=== PATIENT | male | born 1945 | race Caucasian/White ===

== ENCOUNTER 2017-01-10 14:13 | Inpatient (IN) | payer MEDICARE, BC ==
[~2017-01-10] VITALS: Ht 171.4 cm; Wt 70.8 kg
[~2017-01-10 14:13] MED LIST: ARICEPT10 MG PO; CARBATROL200 MG PO; COUMADIN 1MG1 MG/TAB PO; COUMADIN 2MG2 MG/TAB PO; COUMADIN 5MG5 MG/TAB; COZAAR 25MG25 MG/TAB PO; COZAAR 50MG50 MG/TAB PO; FOLIC ACID0.4 MG PO; JANTOVEN2 MG PO; LASIX 20MG TABL20 MG PO; LEVAQUIN 5500 MG/TA1 PO; NATURAL IRON65 MG PO; NORCO 325 MG-7.1 TAB PO; PLAQUENIL 200M200 MG PO; ROXICODONE 55 MG/TAB PO; SODIUM BICARBO650 MG PO; SYNTHROID 0.10.15 MG PO; TYLENOL 500MG500 MG PO; VITAMIN C500 MG PO; XARELTO10 MG PO; ZESTRIL 10MG10 MG PO
[2017-03-28] VITALS (9 sets, daily range): BP systolic 115–140; BP diastolic 53–77; PULSE 63–77; TEMP 97.2–98.9
[2017-03-28 08:25] LABS: PROTHROMBIN TIME 11.7 SECONDS (9.7-12.8)
[2017-03-28] MEDS ORDERED: XARELTO10 MG PO (08:30)
[2017-03-28] MEDS ORDERED: VELTASSA8.4 GM PO (08:32)
[2017-03-29 00:21] VITALS: BP 96/51; PULSE 72; TEMP 98.6
[2017-03-29 03:25] VITALS: BP 105/57; PULSE 75; TEMP 98.6
[2017-03-29 06:54] LABS: INR 1.1 (0.8-3.0); PROTHROMBIN TIME 12.6 SECONDS (9.7-12.8)
[2017-03-29 07:55] VITALS: BP 135/67; PULSE 87; TEMP 98.2
[2017-03-29] MEDS ORDERED: NORCO 325 MG-7.1 TAB PO (09:26)
[2017-03-29] MEDS ORDERED: ROXICODONE 55 MG/TAB PO (09:28)
[2017-03-29] MEDS ORDERED: XARELTO10 MG PO (09:32)
[2017-03-29] MEDS ORDERED: COUMADIN 5MG5 MG/TAB PO (09:37)
== END 2017-03-29 11:56 | disposition home or self-care (01) | DRG 483 ==
LOC: JCC 03-28 07:30 → SURG 03-28 07:51 → JCC 03-28 14:30 → SURG 03-29 11:56
PROVIDERS: Orthopaedic Surgery
PROC: 0RRK00Z Replacement of Left Shoulder Joint with Reverse Ball and Socket Synthetic Substitute, Open Approach (ICD-10-PCS; principal; 2017-03-28 14:30)
DX: M19.212 Secondary osteoarthritis, left shoulder (principal); E03.9 Hypothyroidism, unspecified; Z86.718 Personal history of other venous thrombosis and embolism; Z79.01 Long term (current) use of anticoagulants; Z86.711 Personal history of pulmonary embolism
CPT/HCPCS: A4314; A9284; C1713; C1776; J0360; J0690; J1100; J2370; J2405; J2704; J3010; J7030; J7050

== ENCOUNTER → 2017-03-19 | Outpatient (CLI) | payer MEDICARE, BC ==
[~2017-03-19] MED LIST changes: -COUMADIN 5MG5 MG/TAB; +COUMADIN 5MG5 MG/TAB PO; +IRON325 M2 PO; -NATURAL IRON65 MG PO
[2017-03-19 16:30] LABS: HIV 1/2 Antibodies Non-Reactive; HIV-1p24 Antigen Non-Reactive
== END ==
LOC: COL.LAB 15:30
PROVIDERS: Orthopaedic Surgery
DX: Z01.812 Encounter for preprocedural laboratory examination (principal); M19.012 Primary osteoarthritis, left shoulder

== ENCOUNTER 2019-04-03 07:41 | Day surgery (SDC) | payer MEDICARE, BC ==
[2019-04-03] VITALS (8 sets, daily range): BP systolic 150–182; BP diastolic 67–80; PULSE 51–61; TEMP 97.9
[~2019-04-03] VITALS: Ht 172.8 cm; Wt 79.0 kg
[~2019-04-03 07:41] MED LIST changes: +COUMADIN 5MG5 MG/TAB; -IRON325 M2 PO; +NATURAL IRON65 MG PO; +VELTASSA8.4 GM PO
[2019-04-03 08:40] LABS: HEMOGLOBIN 10.9 g/dl (13.5-18.0); MEAN CELL VOLUME 90 fl (80.0-100.0); MEAN CORPUSCULAR HEMOGLOBIN 29 pg (27.0-31.0); MEAN CORPUSCULAR HGB CONC 33 g/dl (33.0-37.0); MEAN PLATELET VOLUME 11.2 fl (7.4-10.4); PLATELET COUNT 167 K/mm3 (130-400); RED BLOOD COUNT 3.71 M/mm3 (4.20-5.60); REDCELL DISTRIBUTION WIDTH-CV 13.4 % (11.5-14.5)
[2019-04-03 08:42] LABS: HEMATOCRIT 33.3 % (42.0-52.0)
[2019-04-03] MEDS ORDERED: TOPROL XL100 MG PO (08:44)
[2019-04-03] MEDS ORDERED: NORVASC 5MG5 MG/TAB PO (08:46)
[2019-04-03] MEDS ORDERED: SYNTHROID0.2 MG/TAB PO (08:46)
[2019-04-03 08:47] LABS: CALCIUM 8.2 mg/dL (8.4-10.2); CREATININE, serum 2.69 (0.66-1.25); POTASSIUM 5.3 mmol/L (3.4-5.0)
[2019-04-03] MEDS ORDERED: CARBATROL200 MG PO (08:48)
[2019-04-03] MEDS ORDERED: CALCIUM 600MG+D1 TAB PO (08:48)
[2019-04-03] MEDS ORDERED: PLAVIX 75MG TAB75 MG PO (08:49)
[2019-04-03] MEDS ORDERED: COUMADIN 1MG1 MG/TAB PO (08:50)
[2019-04-03 09:01] LABS: INR 1.2 (0.8-3.0); PROTHROMBIN TIME 13.6 SECONDS (9.7-12.8)
[2019-04-03 09:04] LABS: PARTIAL THROMBOPLASTIN TIME 32.6 SECONDS (26.0-37.0)
--- NOTE | 2019-04-03 09:50 | NUR ---
DR DICKINSON INTO SEE PT, LAB WORK OF POTASSIUM 5.3, GFR OF 23 GIVEN TO MUCOMYST GIVEN ORDERED ON SHEET, 500CC/HR BOLUS STARTED THEN TO GO TO 250CC/HR.
--- NOTE | 2019-04-03 10:29 | NUR ---
SEE MERGE FOR MEDICATION ADMINISTRATION TIMES AND INTRA AND POST SEDATION ASSESSMENTS.
--- NOTE | 2019-04-03 11:15 | NUR ---
pt returned from blood bank laboratory professional via bed to eu 12, family with pt. Pt is awake and alert, no c/o. has radial band on 12cc. call light in reach
--- NOTE | 2019-04-03 11:16 | NUR ---
BEDSIDE HAND OFF REPORT TO ES LOZANO. PT IS ALERT AND ORIENTED. HEMOSTASIS NOTED WITH TR BAND IN PLACE ON R WRIST WITH 12CC OF AIR IN THE BAND. FAMILY AT BEDSIDE. PT HAS NO QUESTIONS OR CONCERNS AT THIS TIME.
--- NOTE | 2019-04-03 11:45 | NUR ---
pt voided 300cc yellow urine, sips on coffee, no c/o
--- NOTE | 2019-04-03 12:30 | NUR ---
visits with family, declined meal at this time. no c/o, voided 200cc yellow urine
--- NOTE | 2019-04-03 13:00 | NUR ---
radial band released slowly, 1-2 cc every 5 min. No bleeding or swelling, dressing applied at 1310. pt up and walking. Reviewed discharge inst. with pt and family on care of stie, activity, followup and medications for home, with verbal understanding. [facility] office will call them on followup, but will return on saturday for INR test.
--- NOTE | 2019-04-03 13:35 | NUR ---
int d'cd intact, pt up to b/r to void, dressed. Discharged via w/c to car with family
== END 2019-04-03 13:45 | disposition home or self-care (01) ==
LOC: COL.CAR 07:41
PROVIDERS: Internal Medicine Interventional Cardiology
DX: I25.10 Atherosclerotic heart disease of native coronary artery without angina pectoris (principal); I35.1 Nonrheumatic aortic (valve) insufficiency; I11.0 Hypertensive heart disease with heart failure; I50.22 Chronic systolic (congestive) heart failure; I87.1 Compression of vein; R94.39 Abnormal result of other cardiovascular function study; I73.9 Peripheral vascular disease, unspecified; Z95.1 Presence of aortocoronary bypass graft; Z95.2 Presence of prosthetic heart valve; Z82.49 Family history of ischemic heart disease and other diseases of the circulatory system; Z87.891 Personal history of nicotine dependence; Z79.01 Long term (current) use of anticoagulants
CPT/HCPCS: J1644; J1940; J3010

== ENCOUNTER 2019-10-16 07:58 | Day surgery (SDC) | payer MEDICARE, BC ==
[2019-10-16] VITALS (7 sets, daily range): BP systolic 134–153; BP diastolic 63–88; PULSE 50–66; TEMP 97.6–97.8
[~2019-10-16] VITALS: Ht 172.7 cm; Wt 74.0 kg
[~2019-10-16 07:58] MED LIST changes: +CALCIUM 600MG+D1 TAB PO; +NORVASC 5MG5 MG/TAB PO; +PLAVIX 75MG TAB75 MG PO; +SYNTHROID0.2 MG/TAB PO; +TOPROL XL100 MG PO
[2019-10-16] MEDS ORDERED: VELTASSA8.4 GM PO (08:15)
[2019-10-16] MEDS ORDERED: NORVASC 10MG10 MG PO (08:16)
[2019-10-16] MEDS ORDERED: IMDUR 60MG60 MG/TAB PO (08:17)
[2019-10-16] MEDS ORDERED: TOPROL XL200 MG PO (08:17)
[2019-10-16] MEDS ORDERED: COUMADIN4 MG PO (08:18)
[2019-10-16] MEDS ORDERED: COUMADIN 5MG5 MG/TAB PO (08:19)
[2019-10-16] MEDS ORDERED: CRESTOR5 MG PO (08:20)
[2019-10-16] MEDS ORDERED: FERROUS SU325 MG/TAB PO (08:21)
[2019-10-16] MEDS ORDERED: ASPIRIN E.C. 8181 MG PO (08:22)
[2019-10-16] MEDS ORDERED: CALCIUM 600MG+D1 TAB PO (08:22)
[2019-10-16] MEDS ORDERED: HYTRIN 1MG C1 MG/CAP PO (08:23)
--- NOTE | 2019-10-16 09:25 | NUR ---
Pt returns from endo procedure via cart. Pt ambulates first to bathroom with RN assist. Pt ambulates from bathroom to recliner with RN assist without complication. Pt alert and oriented. Monitors on and alarms set. Call light within reach. Report received from Kathy. present in room. Pt requests muffin, crackers, applesauce, and juice. Pt denies pain or nausea.
--- NOTE | 2019-10-16 09:50 | NUR ---
Pt and finish visiting with Dr. Goyal, who had arrived when the patient had finished using the restroom.
--- NOTE | 2019-10-16 10:10 | NUR ---
Pt taking food and drink well. No complications voiced by patient or .
--- NOTE | 2019-10-16 11:35 | NUR ---
Finish giving discharge instructions to patient and . All questions answered to their satisfaction. Handed to them are discharge instructions, a thank you card, diagnosis information, a discharge med sheet, and procedural photos.
--- NOTE | 2019-10-16 11:40 | NUR ---
Pt transferred out of hospital via wheelchair and this RN to private vehicle driven by .
== END 2019-10-16 11:40 | disposition home or self-care (01) ==
LOC: SDCO 07:58
DX: K21.9 Gastro-esophageal reflux disease without esophagitis (principal); K29.30 Chronic superficial gastritis without bleeding; D64.9 Anemia, unspecified; K57.32 Diverticulitis of large intestine without perforation or abscess without bleeding; R93.3 Abnormal findings on diagnostic imaging of other parts of digestive tract; I48.91 Unspecified atrial fibrillation; I12.9 Hypertensive chronic kidney disease with stage 1 through stage 4 chronic kidney disease, or unspecified chronic kidney disease; N18.9 Chronic kidney disease, unspecified; I25.10 Atherosclerotic heart disease of native coronary artery without angina pectoris; E03.9 Hypothyroidism, unspecified; Z87.891 Personal history of nicotine dependence; Z90.49 Acquired absence of other specified parts of digestive tract; Z88.8 Allergy status to other drugs, medicaments and biological substances; Z79.01 Long term (current) use of anticoagulants
CPT/HCPCS: J2704; J7030

== ENCOUNTER → 2021-06-12 | Outpatient (CLI) | payer MEDICARE, BC ==
[~2021-06-12] MED LIST changes: +ASPIRIN E.C. 8181 MG PO; +COUMADIN4 MG PO; +CRESTOR5 MG PO; +FERROUS SU325 MG/TAB PO; +HYTRIN 1MG C1 MG/CAP PO; +IMDUR 60MG60 MG/TAB PO; +NORVASC 10MG10 MG PO; +TOPROL XL200 MG PO
== END ==
LOC: MC.RAD 07:33
DX: N63.42 Unspecified lump in left breast, subareolar (principal)

== ENCOUNTER → 2021-07-11 | Outpatient (CLI) | payer MEDICARE, BC ==
[~2021-07-11] MED LIST changes: +ATROVENT NASAL15 ML NS; +BROVANA15 MCG/2 M; +COUMADIN 6MG6 MG/TAB PO; +DOXYCYCLINE HY100 MG PO; +HYTRIN 2MG CAPSU2 MG PO; +NORVASC2.5 MG PO; +PERCOCET 325 MG1 TA2 PO; +PREDNISONE10 MG PO; +PULMICORT0.5 MG/2 M IH
== END ==
LOC: MC.RAD 09:24
DX: N63.20 Unspecified lump in the left breast, unspecified quadrant (principal)

== ENCOUNTER 2021-07-13 05:11 | Observation (INO) | payer MEDICARE, BC ==
[~2021-07-13] VITALS: Ht 170.2 cm; Wt 77.6 kg
[~2021-07-13 05:11] MED LIST changes: -ATROVENT NASAL15 ML NS; -BROVANA15 MCG/2 M; -COUMADIN 6MG6 MG/TAB PO; -DOXYCYCLINE HY100 MG PO; -HYTRIN 2MG CAPSU2 MG PO; -NORVASC2.5 MG PO; -PERCOCET 325 MG1 TA2 PO; -PREDNISONE10 MG PO; -PULMICORT0.5 MG/2 M IH
[2021-07-13 05:32] LABS: BASO # 0.1 K/mm3 (0.0-0.2); BASO % 0.7 % (0.0-2.0); EOS # 0.1 K/mm3 (0.0-0.7); EOS % 1.1 % (0.0-4.0); GRAN # 6.6 K/mm3 (1.4-6.5); GRAN % 76.5 % (42.2-75.2); MEAN CELL VOLUME 91 fl (80.0-100.0); MEAN CORPUSCULAR HGB CONC 32 g/dl (33.0-37.0); MONO # 0.8 K/mm3 (0.1-0.6); MONO % 9.2 % (1.7-9.3); PLATELET COUNT 170 K/mm3 (130-400); RED BLOOD COUNT 3.07 M/mm3 (4.20-5.60); REDCELL DISTRIBUTION WIDTH-CV 13.9 % (11.5-14.5)
[2021-07-13 05:40] LABS: HEMATOCRIT 27.8 % (42.0-52.0); HEMOGLOBIN 8.9 g/dl (13.5-18.0); MEAN CORPUSCULAR HEMOGLOBIN 29 pg (27-31)
[2021-07-13 05:57] LABS: ALBUMIN 3.4 gm/dL (3.4-4.8); BILIRUBIN,TOTAL 0.6 mg/dL (0.2-1.2); CALCIUM 8.3 mg/dL (8.4-10.2); CREATININE, serum 3.96 mg/dL (0.72-1.25); POTASSIUM 4.8 mmol/L (3.5-4.5); TOTAL PROTEIN 6.8 gm/dL (6.2-8.1)
[2021-07-13 06:02] LABS: TROPONIN-I 0.027 ng/mL (0.00-0.033)
[2021-07-13] MEDS ORDERED: COZAAR 25MG25 MG/TAB PO (08:17)
[2021-07-13] MEDS ORDERED: NORVASC 5MG5 MG/TAB PO (08:17)
[2021-07-13] MEDS ORDERED: NORVASC2.5 MG PO (08:20)
[2021-07-13] MEDS ORDERED: COUMADIN 6MG6 MG/TAB PO (08:21)
[2021-07-13] MEDS ORDERED: HYTRIN 2MG CAPSU2 MG PO (08:24)
[2021-07-13] MEDS ORDERED: SODIUM BICARBO650 MG PO (08:25)
--- NOTE | 2021-07-13 10:00 | NUR ---
Admission assessment completed, alert/oriented, vital signs stable, pain resolved, trop slightly elevated and Cardiology consulted, meds/allergies/pharmacy reivewed with patient, heart RRR/ SR on tele, lungs CTA no resp.difficulty, notified Neph and Cards of his arrival to room 319
[2021-07-13 11:37] LABS: CHOLESTEROL RISK RATIO 2.6
[2021-07-13 11:54] LABS: INR 1.1 (0.8-3.0); PROTHROMBIN TIME 12.9 SECONDS (9.7-12.8)
[2021-07-13 12:37] VITALS: BP 175/66; PULSE 72; TEMP 97.9
[2021-07-13 16:02] VITALS: BP 169/70; PULSE 84; TEMP 99.2
[2021-07-13 17:05] VITALS: BP 183/79; PULSE 85
[2021-07-13 17:50] VITALS: BP 166/71; PULSE 90
--- NOTE | 2021-07-13 19:45 | NUR ---
Pt. sitting up in chair at this time. Pt. is A&OX3, assessment complete. INT to lt. forearm patent. Pt. denies pain or other needs, call light within reach.
[2021-07-13 20:19] VITALS: BP 143/64; PULSE 80; TEMP 98.3
[2021-07-13 23:48] VITALS: BP 95/52; PULSE 74; TEMP 98.5
[2021-07-14 04:50] VITALS: BP 121/64; PULSE 79; TEMP 98.6
[2021-07-14 06:57] LABS: INR 1.2 (0.8-3.0); PROTHROMBIN TIME 13.9 SECONDS (9.7-12.8)
[2021-07-14 07:10] LABS: ALBUMIN 2.8 gm/dL (3.4-4.8); BILIRUBIN,TOTAL 0.5 mg/dL (0.2-1.2); CALCIUM 7.8 mg/dL (8.4-10.2); CREATININE, serum 3.84 mg/dL (0.72-1.25); TOTAL PROTEIN 5.9 gm/dL (6.2-8.1)
[2021-07-14 07:37] VITALS: BP 124/66; PULSE 73; TEMP 98.3
--- NOTE | 2021-07-14 09:53 | NUR ---
MARIELLA met with the patient and his daughter, Irina (ph#[phone]), to discuss discharge plan. The patient lives [facility] with his , Zoraida (ph#[phone]). He reports independence with ADLs and has a cane and walker, if needed. The patient's PCP is Dr. Jose Luis Munoz and he receives his medications from [facility]. The patient does not have a DPOA-HC in EMR, but he states that he does have one completed and that it designates his . The patient plans on returning home with his upon discharge. No additional needs at this time. *Discharge plan: home with *
--- NOTE | 2021-07-14 10:12 | NUR ---
NO COMPLAINTS OF PAIN. COMPLETED BREAKFAST. NO SHORTNESS OF BREATH. PATIENT INQUIRING ABOUT DISCHARGE HOME AND PRESCRIPTION PAIN MANAGEMENT AT DISCHARGE. VERY PLESANT. NO CONCERNS FOR AUTHOR AT THIS TIME.
[2021-07-14] MEDS ORDERED: PERCOCET 325 MG1 TA2 PO (11:05)
[2021-07-14 11:14] VITALS: BP 112/48; PULSE 70; TEMP 97.5
[2021-07-14 12:35] LABS: BASO % 0.5 % (0.0-2.0); EOS # 0.1 K/mm3 (0.0-0.7); EOS % 0.8 % (0.0-4.0); GRAN # 5.5 K/mm3 (1.4-6.5); GRAN % 75.3 % (42.2-75.2); LYMPH # 0.8 K/mm3 (1.2-3.4); LYMPH % 10.9 % (20.0-51.0); MEAN CELL VOLUME 91 fl (80.0-100.0); MEAN CORPUSCULAR HGB CONC 32 g/dl (33.0-37.0); MEAN PLATELET VOLUME 11.6 fl (7.4-10.4); MONO # 0.9 K/mm3 (0.1-0.6); MONO % 12.1 % (1.7-9.3); PLATELET COUNT 154 K/mm3 (130-400); RED BLOOD COUNT 2.81 M/mm3 (4.20-5.60); REDCELL DISTRIBUTION WIDTH-CV 13.9 % (11.5-14.5)
[2021-07-14 12:37] LABS: HEMATOCRIT 25.6 % (42.0-52.0); HEMOGLOBIN 8.3 g/dl (13.5-18.0); MEAN CORPUSCULAR HEMOGLOBIN 30 pg (27-31)
--- NOTE | 2021-07-14 12:37 | NUR ---
Lucy: Taoist Situation: Director Of Sports Medicine visited during rounds. Background: Pt seemed very content. Had family in the room with him. Assessment: Director Of Sports Medicine visited about PT life's history and asked if he had any needs. As of right now he has no needs. Recommendation: Director Of Sports Medicine will follow up as needed.
[2021-07-14 15:12] VITALS: BP 122/61; PULSE 70; TEMP 98.4
--- NOTE | 2021-07-14 17:01 | NUR ---
Patient very plesant today. No complaints of pain at all today. Patient spent most of day resting in bed. Visiting with family and friends. Appetite reduced, did not order lunch. Had a snack brought in with family. Cleared by cardio and nephrology, awaiting labs and noc-ox. Possible discharge home tomorrow pending results.
[2021-07-14 20:07] VITALS: BP 140/62; PULSE 79; TEMP 98.5
[2021-07-14 23:54] VITALS: BP 126/65; PULSE 78; TEMP 98.6
[2021-07-15 01:19] LABS: PROCALCITONIN 0.46 ng/mL (0.00-0.09)
[2021-07-15 04:32] VITALS: BP 125/63; PULSE 75; TEMP 98.1
--- NOTE | 2021-07-15 04:49 | NUR ---
ASSESSMENT COMPLETE FOR THIS SHIFT. PT RESTING IN BED SLEEPING. PT DENIED PAIN, PALPITATIONS, SOB, N,V,D OR DIZZINESS. PT HAD A PRETTY UNEVENTFUL NIGHT. PT EXPRESSED NO OTHER NEEDS AT THIS TIME. CALL LIGHT WITHIN REACH.
[2021-07-15 06:16] LABS: BASO % 0.1 % (0.0-2.0); EOS % 0.1 % (0.0-4.0); GRAN # 6.8 K/mm3 (1.4-6.5); GRAN % 83.5 % (42.2-75.2); LYMPH # 0.8 K/mm3 (1.2-3.4); LYMPH % 9.2 % (20.0-51.0); MEAN CELL VOLUME 89 fl (80.0-100.0); MEAN CORPUSCULAR HGB CONC 32 g/dl (33.0-37.0); MEAN PLATELET VOLUME 12.3 fl (7.4-10.4); MONO # 0.5 K/mm3 (0.1-0.6); MONO % 6.5 % (1.7-9.3); PLATELET COUNT 151 K/mm3 (130-400); RED BLOOD COUNT 2.81 M/mm3 (4.20-5.60); REDCELL DISTRIBUTION WIDTH-CV 13.6 % (11.5-14.5)
[2021-07-15 06:21] LABS: HEMATOCRIT 25.1 % (42.0-52.0); HEMOGLOBIN 8.1 g/dl (13.5-18.0); MEAN CORPUSCULAR HEMOGLOBIN 29 pg (27-31)
[2021-07-15 06:23] LABS: INR 1.4 (0.8-3.0); PROTHROMBIN TIME 16.6 SECONDS (9.7-12.8)
[2021-07-15 06:24] LABS: ALBUMIN 2.7 gm/dL (3.4-4.8); BILIRUBIN,TOTAL 0.3 mg/dL (0.2-1.2); CALCIUM 7.9 mg/dL (8.4-10.2); CREATININE, serum 4.3 mg/dL (0.72-1.25); POTASSIUM 4.7 mmol/L (3.5-4.5)
[2021-07-15 07:40] VITALS: BP 132/58; PULSE 72; TEMP 97.8
--- NOTE | 2021-07-15 08:00 | NUR ---
Patient laying in bed resting, easily awakened with verbal commmand. A&Ox3. VSS. IV CDI. Denies pain and discomfort. Call light within reach.
[2021-07-15 12:38] VITALS: BP 119/61; PULSE 71; TEMP 98.2
[2021-07-15] MEDS ORDERED: BROVANA15 MCG/2 M (13:26)
[2021-07-15] MEDS ORDERED: PULMICORT0.5 MG/2 M IH (13:26)
[2021-07-15] MEDS ORDERED: ATROVENT NASAL15 ML NS (13:27)
[2021-07-15] MEDS ORDERED: DOXYCYCLINE HY100 MG PO (13:28)
[2021-07-15] MEDS ORDERED: PREDNISONE10 MG PO (13:34)
--- NOTE | 2021-07-15 14:53 | NUR ---
Discharge paperwork reviewed with the patient. IV removed, tip intact. Gauze and tape applied. Patient waiting on ride to come. Call light within reach
--- NOTE | 2021-07-15 15:40 | NUR ---
Patient ambulated to the ED independently to awaiting vehicle. No further needs expressed
[2021-07-17 17:55] LABS: C-ANCA 14 U/mL (0-99)
== END 2021-07-15 15:40 | disposition home or self-care (01) ==
LOC: COL.ER 05:11 → MEDICAL 08:26
PROVIDERS: Nurse Practitioner; Personal Emergency Response Attendant; Registered Nurse; ADMIT Internal Medicine Nephrology
DX: J18.9 Pneumonia, unspecified organism (principal); R09.1 Pleurisy; R74.8 Abnormal levels of other serum enzymes; I13.0 Hypertensive heart and chronic kidney disease with heart failure and stage 1 through stage 4 chronic kidney disease, or unspecified chronic kidney disease; N18.4 Chronic kidney disease, stage 4 (severe); I50.20 Unspecified systolic (congestive) heart failure; D63.1 Anemia in chronic kidney disease; E87.5 Hyperkalemia; R91.8 Other nonspecific abnormal finding of lung field; E03.9 Hypothyroidism, unspecified; D68.61 Antiphospholipid syndrome; N40.0 Benign prostatic hyperplasia without lower urinary tract symptoms; Q61.3 Polycystic kidney, unspecified; Z87.891 Personal history of nicotine dependence; Z86.718 Personal history of other venous thrombosis and embolism; Z79.01 Long term (current) use of anticoagulants; Z79.899 Other long term (current) drug therapy; Z79.890 Hormone replacement therapy; Z95.820 Peripheral vascular angioplasty status with implants and grafts; Z79.82 Long term (current) use of aspirin
CPT/HCPCS: G0378; J7512

== ENCOUNTER → 2021-10-12 | Outpatient (CLI) | payer MEDICARE, BC ==
[~2021-10-12] MED LIST changes: +ATROVENT NASAL15 ML NS; +BROVANA15 MCG/2 M; +COUMADIN 6MG6 MG/TAB PO; +DOXYCYCLINE HY100 MG PO; +HYTRIN 2MG CAPSU2 MG PO; +NORVASC2.5 MG PO; +PERCOCET 325 MG1 TA2 PO; +PREDNISONE10 MG PO; +PULMICORT0.5 MG/2 M IH
== END ==
LOC: COL.VAS 08:52
DX: N17.9 Acute kidney failure, unspecified (principal); N18.4 Chronic kidney disease, stage 4 (severe); N08 Glomerular disorders in diseases classified elsewhere

== ENCOUNTER 2021-10-30 05:55 | Inpatient (IN) | payer MEDICARE, BC ==
[~2021-10-30] VITALS: Ht 170.2 cm; Wt 70.6 kg
[2021-10-30] MEDS ORDERED: ENTRESTO 24 MG1 EACH PO (10:47)
[2021-10-30] MEDS ORDERED: IMDUR 60MG60 MG/TAB PO (10:49)
[2021-10-30] MEDS ORDERED: COUMADIN4 MG PO (10:51)
[2021-10-30 10:54] VITALS: BP 149/52; PULSE 56; TEMP 97.7
[2021-10-30 11:22] LABS: BASO # 0.1 K/mm3 (0.0-0.2); BASO % 0.9 % (0.0-2.0); EOS # 0.1 K/mm3 (0.0-0.7); EOS % 1.4 % (0.0-4.0); GRAN # 3.7 K/mm3 (1.4-6.5); GRAN % 62.5 % (42.2-75.2); LYMPH # 1.5 K/mm3 (1.2-3.4); LYMPH % 26.3 % (20.0-51.0); MEAN CELL VOLUME 90 fl (80.0-100.0); MEAN CORPUSCULAR HGB CONC 33 g/dl (33.0-37.0); MEAN PLATELET VOLUME 11.2 fl (7.4-10.4); MONO # 0.5 K/mm3 (0.1-0.6); MONO % 8.4 % (1.7-9.3); PLATELET COUNT 185 K/mm3 (130-400); RED BLOOD COUNT 2.93 M/mm3 (4.20-5.60); REDCELL DISTRIBUTION WIDTH-CV 14.3 % (11.5-14.5)
[2021-10-30 11:24] LABS: HEMATOCRIT 26.3 % (42.0-52.0); HEMOGLOBIN 8.6 g/dl (13.5-18.0); MEAN CORPUSCULAR HEMOGLOBIN 29 pg (27-31)
[2021-10-30 11:44] LABS: INR 1.3 (0.8-3.0); PROTHROMBIN TIME 14.8 SECONDS (9.7-12.8)
[2021-10-30 11:45] LABS: ALBUMIN 3.1 gm/dL (3.4-4.8); CALCIUM 8.7 mg/dL (8.4-10.2); CREATININE, serum 4.22 mg/dL (0.72-1.25); PHOSPHOROUS 3.8 mg/dL (2.3-4.7); POTASSIUM 5.3 mmol/L (3.5-4.5)
--- NOTE | 2021-10-30 18:24 | NUR ---
Uneventful day, patient updated with POC. IV started to RFA. L arm restricted. Has no needs at this time. Call light within reach.
--- NOTE | 2021-10-30 19:38 | NUR ---
PATEINT LAYING IN BED WITH LIGHTS AND T.V. OFF. PATIENT DENIES ANY PAIN, NEEDS OR CONCERNS AT THIS TIME. PATIENT DOES QUESTION IF NPO STILL APPLIES AT MIDNIGHT. THIS NURSE CONFIRMS. PATIENT STATES UNDERSTANDING. CALL LIGHT IS WITHIN REACH OF PATIENT AND PATIENT ENCOURAGED TO USE WITH ANY NEEDS OR CONCERNS. PATIENT STATES UNDERSTANDING.
[2021-10-30 19:42] VITALS: BP 130/52; PULSE 59; TEMP 98.4
[2021-10-30 23:20] LABS: TRANSFERRIN 175 mg/dL (163-344)
[2021-10-30 23:37] LABS: HEPATITIS B SURFACE ANTIBODY <2.0 (()); HEPATITIS B SURFACE ANTIGEN Negative (Negative); HEPATITIS C VIRUS ANTIBODY Negative (Negative)
[2021-10-30 23:41] VITALS: BP 135/54; PULSE 56
[2021-10-31 03:41] VITALS: BP 128/54; PULSE 58; TEMP 97.4
--- NOTE | 2021-10-31 06:35 | NUR ---
PATIENT HAD AN UNEVENTFUL NIGHT AND REMAINED NPO AFTER MIDNIGHT. PATIENT CALL LIGHT REMAINS IN PATIENT REACH.
[2021-10-31 07:10] VITALS: BP 110/55; PULSE 59; TEMP 97.7
[2021-10-31 07:16] LABS: BASO # 0.1 K/mm3 (0.0-0.2); BASO % 1.5 % (0.0-2.0); EOS # 0.1 K/mm3 (0.0-0.7); EOS % 1.9 % (0.0-4.0); GRAN # 2.7 K/mm3 (1.4-6.5); GRAN % 57.9 % (42.2-75.2); LYMPH # 1.4 K/mm3 (1.2-3.4); LYMPH % 29.3 % (20.0-51.0); MEAN CELL VOLUME 91 fl (80.0-100.0); MEAN CORPUSCULAR HGB CONC 32 g/dl (33.0-37.0); MEAN PLATELET VOLUME 12.4 fl (7.4-10.4); MONO # 0.4 K/mm3 (0.1-0.6); PLATELET COUNT 172 K/mm3 (130-400); RED BLOOD COUNT 2.85 M/mm3 (4.20-5.60); REDCELL DISTRIBUTION WIDTH-CV 14.2 % (11.5-14.5)
[2021-10-31 07:18] LABS: ALBUMIN 2.9 gm/dL (3.4-4.8); CALCIUM 8.2 mg/dL (8.4-10.2); CREATININE, serum 3.92 mg/dL (0.72-1.25); HEMATOCRIT 25.9 % (42.0-52.0); HEMOGLOBIN 8.4 g/dl (13.5-18.0); MEAN CORPUSCULAR HEMOGLOBIN 29 pg (27-31); PHOSPHOROUS 4.3 mg/dL (2.3-4.7); POTASSIUM 5.1 mmol/L (3.5-4.5)
--- NOTE | 2021-10-31 08:36 | NUR ---
Pt assessment complete. Pt is A/O x4. His breathing is even and unlabored on RA. Pt denies SOB. No pain at this time. POC discussed with patient who verbalizes understanding. Pt assisted in showering.
[2021-10-31 11:06] VITALS: BP 149/50; PULSE 50; TEMP 97.7
--- NOTE | 2021-10-31 13:38 | NUR ---
Cart Attendant met with patient to discuss discharge planning. Patient lives in [place] with his , Zoraida (ph#[phone]) and sees Dr. Munoz for primary care. Patient obtains medications from [facility] with no difficulties and does not use any DME. Patient reports independence with ADLS and PT recommendation is for home at this time. Patient reports his , Zoraida is his DPOA-HC. Patient plans to return home at time of discharge. Discharge Plan: Home
[2021-10-31 15:22] VITALS: BP 151/51; PULSE 58; TEMP 97.7
--- NOTE | 2021-10-31 18:34 | NUR ---
Pt still down in procedure at this time. Report given to ES Cunha.
--- NOTE | 2021-10-31 19:18 | NUR ---
PATIENT IS STILL IN SURGERY. PATIENT IS IN PATIENT ROOM IN RECLINER. ES MARTÍNEZ FROM SURGERY CALLS TO REPORT TO . DENIES ANY NEEDS OR CONCERNS AT THIS TIME. PATIENT ENCOURAGED TO USE CALL LIGHT WITH ANY NEEDS OR CONCERNS.
--- NOTE | 2021-10-31 22:50 | NUR ---
NURSE WAS NOTIFIED PATIENT BLOOD PRESSURE CUFF WAS ON LIMB RESTRICTED LEFT LIMB. BLOOD PRESSURE CUFF REMOVED AND PLACED ON RIGHT BY JEFFERSON BRIGGS RN. THIS NURSE PLACED CALL TO DR. HAY PER DR. TONG REQUEST. DR. HAY STATES HE OR DR. LUI WILL BE IN TO ASSESS FISTULA IN MORNING. POSITIVE FOR BRUT, NEGATIVE FOR THRILL.
[2021-11-01] VITALS (13 sets, daily range): BP systolic 122–172; BP diastolic 40–60; PULSE 57–71; TEMP 97.6–99.1
--- NOTE | 2021-11-01 05:58 | NUR ---
PATIENT HAS RESTED WITH EYES CLOSED MOST OF THE NIGHT SINCE HS. PATIENT DENIES PAIN, NEEDS OR CONCERNS. CALL LIGHT REMAINS IN PLACE AND PATIENT IS ENCOURAGED TO USE WITH ANY NEEDS OR CONCERNS PATIENT WANTS TO MAKE SURE STAFF KNOWS HE DOES NOT WITH TO TAKE HIS ENTRESTO. THIS NURSE ASSURES PATIENT SHE WILL PASS THIS INFORMATION ON TO DAY SHIFT RN. PATIENT STATES APPRECIATION.
[2021-11-01 06:49] LABS: BASO % 0.6 % (0.0-2.0); EOS % 0.6 % (0.0-4.0); GRAN # 3.6 K/mm3 (1.4-6.5); GRAN % 71.4 % (42.2-75.2); LYMPH % 19.3 % (20.0-51.0); MEAN CELL VOLUME 95 fl (80.0-100.0); MEAN CORPUSCULAR HGB CONC 31 g/dl (33.0-37.0); MEAN PLATELET VOLUME 11.5 fl (7.4-10.4); MONO # 0.4 K/mm3 (0.1-0.6); MONO % 7.7 % (1.7-9.3); PLATELET COUNT 116 K/mm3 (130-400); RED BLOOD COUNT 2.07 M/mm3 (4.20-5.60); REDCELL DISTRIBUTION WIDTH-CV 14.1 % (11.5-14.5)
[2021-11-01 06:52] LABS: ALBUMIN 1.9 gm/dL (3.4-4.8); CALCIUM 7.1 mg/dL (8.4-10.2); CREATININE, serum 2.5 mg/dL (0.72-1.25); PHOSPHOROUS 2.9 mg/dL (2.3-4.7); POTASSIUM 4.9 mmol/L (3.5-4.5)
[2021-11-01 07:13] LABS: HEMATOCRIT 19.7 % (42.0-52.0); MEAN CORPUSCULAR HEMOGLOBIN 29 pg (27-31)
[2021-11-01 07:14] LABS: HEMOGLOBIN 6.1 g/dl (13.5-18.0)
--- NOTE | 2021-11-01 07:18 | NUR ---
DR. TONG NOTIFIED OF CRITICAL C02-11, AND HGB 6.1, NO NEW ORDERS
--- NOTE | 2021-11-01 07:25 | NUR ---
VSS, PT RESTING IN BED, REPORTS SORENESS TO LEFT FISTULA AREA (WRIST/FOREARM), PT A&O X4, PT ABLE TO MAKE NEEDS KNOWN, CALL LIGHT IN REACH
--- NOTE | 2021-11-01 10:12 | NUR ---
Initial visit; Patient upset about starting Dialysis. Assistant Manager Bilingual talked with Don about thinking about Dialysis as just a small part of his life, he has the rest of it to do with as he chooses. Assistant Manager Bilingual offered prayer, encouragement and God's blessings and will continue to look in on him while he is a patient here.
[2021-11-01 18:48] LABS: INR 1.2 (0.8-3.0); PROTHROMBIN TIME 13.5 SECONDS (9.7-12.8)
[2021-11-02] VITALS (7 sets, daily range): BP systolic 123–150; BP diastolic 44–62; PULSE 61–69; TEMP 97.9–9838
--- NOTE | 2021-11-02 05:40 | NUR ---
ASSESSMENT COMPLETE FOR MOTION PICTURE OPERATOR. PT RESTING IN BED NAPPING. PT DENIED GENERAL PAIN, CHEST PAIN, PALPITATIONS, N,V,D, SOB OR DIZZINESS. ONE UNIT OF LRBC'S TRANSFUSED. PT TOLERATED WELL. VSS. PT EXPRESSED NO ADDITIONAL NEEDS AT THIS TIME. CALL LIGHT WITHIN REACH.
[2021-11-02 06:25] LABS: BASO # 0.1 K/mm3 (0.0-0.2); BASO % 1.3 % (0.0-2.0); EOS # 0.1 K/mm3 (0.0-0.7); EOS % 2.6 % (0.0-4.0); GRAN # 2.7 K/mm3 (1.4-6.5); GRAN % 57.9 % (42.2-75.2); LYMPH # 1.1 K/mm3 (1.2-3.4); LYMPH % 23.3 % (20.0-51.0); MEAN CORPUSCULAR HGB CONC 34 g/dl (33.0-37.0); MONO # 0.7 K/mm3 (0.1-0.6); MONO % 14.3 % (1.7-9.3); PLATELET COUNT 141 K/mm3 (130-400); RED BLOOD COUNT 3.48 M/mm3 (4.20-5.60); REDCELL DISTRIBUTION WIDTH-CV 14.1 % (11.5-14.5)
[2021-11-02 06:31] LABS: HEMATOCRIT 29.9 % (42.0-52.0); HEMOGLOBIN 10.1 g/dl (13.5-18.0); MEAN CELL VOLUME 86 fl (80.0-100.0); MEAN CORPUSCULAR HEMOGLOBIN 29 pg (27-31)
[2021-11-02 06:43] LABS: ALBUMIN 2.8 gm/dL (3.4-4.8); CREATININE, serum 3.04 mg/dL (0.72-1.25); PHOSPHOROUS 3.1 mg/dL (2.3-4.7)
[2021-11-02] MEDS ORDERED: TYLENOL 500MG500 MG PO (11:06)
[2021-11-02] MEDS ORDERED: VELTASSA8.4 GM PO (11:18)
--- NOTE | 2021-11-02 15:05 | NUR ---
PT DISMISSED TO HOME TODAY, PT AND EDUCATED ON DISMISSAL INSTRUCTIONS/MEDICATION INSTRUCTIONS/FOLLOW UP INSTRUCTIONS, IV DC'D, PT AND VOICED SEVERAL QUESTIONS THAT I ANSWERED AND HAD NO UNANSWERED QUESTIONS, PT TRANSPORTED TO EXIT PER , NO FURTHER CONCERNS
== END 2021-11-02 15:09 | disposition home or self-care (01) | DRG 264 ==
LOC: MEDICAL 10:31 → SURG 15:30 → MEDICAL 17:26
PROVIDERS: Registered Nurse; Surgery; ADMIT Internal Medicine Nephrology
PROC: 0JH63XZ Insertion of Tunneled Vascular Access Device into Chest Subcutaneous Tissue and Fascia, Percutaneous Approach (ICD-10-PCS; 2021-10-31)
PROC: 02HV33Z Insertion of Infusion Device into Superior Vena Cava, Percutaneous Approach (ICD-10-PCS; 2021-10-31)
PROC: B5181ZA Fluoroscopy of Superior Vena Cava using Low Osmolar Contrast, Guidance (ICD-10-PCS; 2021-10-31)
PROC: 031C0ZF Bypass Left Radial Artery to Lower Arm Vein, Open Approach (ICD-10-PCS; 2021-10-31 15:30)
PROC: 5A1D70Z Performance of Urinary Filtration, Intermittent, Less than 6 Hours Per Day (ICD-10-PCS; principal; 2021-11-01)
DX: I13.2 Hypertensive heart and chronic kidney disease with heart failure and with stage 5 chronic kidney disease, or end stage renal disease (principal); N18.6 End stage renal disease; D68.61 Antiphospholipid syndrome; G40.802 Other epilepsy, not intractable, without status epilepticus; N17.9 Acute kidney failure, unspecified; E87.2 Acidosis; E87.5 Hyperkalemia; I50.22 Chronic systolic (congestive) heart failure; E03.9 Hypothyroidism, unspecified; N40.0 Benign prostatic hyperplasia without lower urinary tract symptoms; I25.10 Atherosclerotic heart disease of native coronary artery without angina pectoris; J40 Bronchitis, not specified as acute or chronic; I70.90 Unspecified atherosclerosis; M19.90 Unspecified osteoarthritis, unspecified site; D63.1 Anemia in chronic kidney disease; Z99.2 Dependence on renal dialysis; Z79.01 Long term (current) use of anticoagulants; Z86.718 Personal history of other venous thrombosis and embolism; Z90.49 Acquired absence of other specified parts of digestive tract; Z86.711 Personal history of pulmonary embolism; Z79.82 Long term (current) use of aspirin; Z79.890 Hormone replacement therapy; Z87.891 Personal history of nicotine dependence; I25.2 Old myocardial infarction; Z87.01 Personal history of pneumonia (recurrent); Z85.828 Personal history of other malignant neoplasm of skin; Z88.8 Allergy status to other drugs, medicaments and biological substances
CPT/HCPCS: C1750; C1768; J1644; J1650; J1756; J2704; J3010; J7120; P9016; Q5105

== ENCOUNTER 2022-06-05 14:19 | Emergency (ER) | payer MEDICARE, BC ==
[~2022-06-05] VITALS: Ht 172.7 cm; Wt 66.8 kg
[~2022-06-05 14:19] MED LIST changes: +ENTRESTO 24 MG1 EACH PO
[2022-06-05 14:25] VITALS: TEMP 97.5
[2022-06-05 15:07] LABS: BASO # 0.1 K/mm3 (0.0-0.2); BASO % 1.2 % (0.0-2.0); GRAN # 6.5 K/mm3 (1.4-6.5); GRAN % 76.7 % (42.2-75.2); HEMOGLOBIN 10.3 g/dl (13.5-18.0); LYMPH # 1.2 K/mm3 (1.2-3.4); LYMPH % 14.5 % (20.0-51.0); MEAN CELL VOLUME 97 fl (80.0-100.0); MEAN CORPUSCULAR HEMOGLOBIN 31 pg (27-31); MEAN CORPUSCULAR HGB CONC 32 g/dl (33.0-37.0); MEAN PLATELET VOLUME 12.1 fl (7.4-10.4); MONO # 0.6 K/mm3 (0.1-0.6); MONO % 7.2 % (1.7-9.3); PLATELET COUNT 156 K/mm3 (130-400); RED BLOOD COUNT 3.29 M/mm3 (4.20-5.60); REDCELL DISTRIBUTION WIDTH-CV 14.8 % (11.5-14.5)
[2022-06-05 15:14] LABS: ALBUMIN 3.2 gm/dL (3.4-4.8); BILIRUBIN,TOTAL 0.7 mg/dL (0.2-1.2); CALCIUM 8.8 mg/dL (8.4-10.2); CREATININE, serum 4.18 mg/dL (0.72-1.25); POTASSIUM 4.4 mmol/L (3.5-4.5); TOTAL PROTEIN 6.8 gm/dL (6.2-8.1)
[2022-06-05 15:16] LABS: HEMATOCRIT 31.9 % (42.0-52.0)
[2022-06-05 15:20] LABS: TROPONIN-I 0.031 ng/mL (0.00-0.033)
[2022-06-05] MEDS ORDERED: CEFTIN500 MG PO (15:54)
[2022-06-05 16:25] LABS: INR 1.6 (0.8-3.0)
[2022-06-05 16:42] VITALS: BP 144/72; PULSE 64
== END 2022-06-05 16:42 | disposition home or self-care (01) ==
LOC: COL.ER 14:19
PROVIDERS: Family Medicine; Physician Assistant
DX: J18.9 Pneumonia, unspecified organism (principal); I13.2 Hypertensive heart and chronic kidney disease with heart failure and with stage 5 chronic kidney disease, or end stage renal disease; I50.9 Heart failure, unspecified; N18.6 End stage renal disease; Z86.711 Personal history of pulmonary embolism; Z79.01 Long term (current) use of anticoagulants; Z99.2 Dependence on renal dialysis

== ENCOUNTER 2023-11-06 19:22 | Emergency (ER) | payer MEDICARE, BC ==
[~2023-11-06] VITALS: Ht 172.7 cm; Wt 74.0 kg
[~2023-11-06 19:22] MED LIST changes: +CEFTIN500 MG PO; +COUMADIN 3MG3 MG/TAB PO; +COZAAR100 MG PO; +FLOMAX 0.40.4 MG/CAP PO; +GENTAMICIN TOPI15 GM TP; +LOVENOX 4040 MG/0.4 SQ; +NEURONTIN100 MG/CAP PO; +PHOS LO PO; +PRILOSEC 20MG20 MG PO
[2023-11-06 19:29] VITALS: TEMP 99.6
[2023-11-06] MEDS ORDERED: NS 500 ML IV ONE ×2 (19:30→21:00)
[2023-11-06] MEDS ORDERED: Acetaminophen 325 MG TAB PO ONE (19:30)
[2023-11-06] MEDS ORDERED: cefTAZidime 1 GM in Water For Injection,Sterile 10 ML IV ONE (19:45)
[2023-11-06 19:48] LABS: HEMOGLOBIN 10.7 g/dl (13.5-18.0); MEAN CELL VOLUME 95 fl (80.0-100.0); MEAN CORPUSCULAR HEMOGLOBIN 31 pg (27-31); MEAN CORPUSCULAR HGB CONC 32 g/dl (33.0-37.0); MEAN PLATELET VOLUME 10.4 fl (7.4-10.4); PLATELET COUNT 197 K/mm3 (130-400); RED BLOOD COUNT 3.47 M/mm3 (4.20-5.60); REDCELL DISTRIBUTION WIDTH-CV 14.4 % (11.5-14.5)
[2023-11-06 20:02] LABS: ALBUMIN 2.4 g/dL (3.4-4.8); BILIRUBIN,TOTAL 1.1 mg/dL (0.2-1.2); C-REACTIVE PROTEIN 20.61 mg/dL (0.00-0.50); CALCIUM 8.3 mg/dL (8.4-10.2); CREATININE, serum 6.74 mg/dL (0.72-1.25); TOTAL PROTEIN 6.4 g/dl (6.2-8.1)
[2023-11-06 20:13] LABS: COLLECTION METHOD CLEAN CATCH
[2023-11-06 20:29] LABS: LYMPHOCYTE 5 % (20.0-51.0); NEUTROPHILS 93 % (42.0-75.2)
[2023-11-06 20:30] LABS: PLATELET ESTIMATE NORMAL (NORMAL)
[2023-11-06 20:43] LABS: URINE APPEARANCE TURBID (CLEAR/HAZY); URINE BLOOD 2+ (NEGATIVE); URINE COLOR YELLOW (YELLOW); URINE GLUCOSE NEGATIVE (NEGATIVE); URINE KETONE TRACE (NEGATIVE); URINE NITRATE NEGATIVE (NEGATIVE); URINE PROTEIN(semi-quant) 2+ (NEGATIVE); URINE UROBILINOGEN 0.2 E.U/dL (0.2-1.0)
[2023-11-06 21:39] LABS: URINE WBC 20-50 /hpf (0-2)
[2023-11-06 21:40] LABS: URINE BACTERIA RARE /hpf (NONE SEEN); URINE CALCIUM OXALATE CRYSTAL PRESENT (NOT PRESENT)
[2023-11-06 22:30] VITALS: BP 122/71; PULSE 107
== END 2023-11-06 22:30 | disposition short-term general hospital (02) ==
LOC: COL.ER 19:22
PROVIDERS: Emergency Medicine
DX: I13.2 Hypertensive heart and chronic kidney disease with heart failure and with stage 5 chronic kidney disease, or end stage renal disease (principal); N18.6 End stage renal disease; I50.9 Heart failure, unspecified; R65.20 Severe sepsis without septic shock; Z99.2 Dependence on renal dialysis; N39.0 Urinary tract infection, site not specified
CPT/HCPCS: J0713; J7040